=== PATIENT | male | born 1950 | race Caucasian/White ===

== ENCOUNTER 2023-05-16 09:19 | Day surgery (SDC) | payer MEDICARE, BC ==
[~2023-05-16 09:19] MED LIST: Lactated Ringers 1,000 ML IV SCH
[2023-05-16] MEDS ORDERED: Propofol 200 MG/20 ML SDV ONE ×2 (10:49→11:39)
[2023-05-16] MEDS ORDERED: fentaNYL 100 MCG/2 ML SDV ONE (10:49)
== END 2023-05-16 12:55 | disposition home or self-care (01) ==
LOC: VM.SDS 09:19
PROVIDERS: ATTEND Family Medicine
DX: Z12.11 Encounter for screening for malignant neoplasm of colon (principal); D12.0 Benign neoplasm of cecum; K57.30 Diverticulosis of large intestine without perforation or abscess without bleeding; N40.0 Benign prostatic hyperplasia without lower urinary tract symptoms; E78.00 Pure hypercholesterolemia, unspecified; I10 Essential (primary) hypertension; E66.9 Obesity, unspecified; Z79.899 Other long term (current) drug therapy; Z68.31 Body mass index [BMI] 31.0-31.9, adult
CPT/HCPCS: 00811; 88305; J2704; J3010; J7120